=== PATIENT | female | born 1980 | race Caucasian/White ===

== ENCOUNTER 2017-06-23 11:12 | Emergency (ER) | payer BC ==
[2017-06-23] MEDS: IBUPROFEN 800 MG TAB PO (13:34)
== END 2017-06-23 14:17 | disposition home or self-care (01) ==
LOC: E/R 11:12
DX: R07.2 Precordial pain (principal); F17.210 Nicotine dependence, cigarettes, uncomplicated
CPT/HCPCS: 71045; 93005; 99284-25

== ENCOUNTER 2017-09-03 13:50 | Emergency (ER) | payer BC ==
[2017-09-03] MEDS: KETOROLAC 30 MG INJ IM (17:17)
[2017-09-03 17:38] LABS: ADD UMIC YES; UR ASCORBIC ACID NEGATIVE (NEGATIVE); UR BILIRUBIN (Dip) NEGATIVE (NEGATIVE); UR BLOOD (Dip) 3+ mg/dL (NEGATIVE); UR CLARITY CLEAR (CLEAR); UR COLOR AMBER (YELLOW); UR GLUCOSE (Dip) NEGATIVE (NEGATIVE); UR KETONES (Dip) NEGATIVE (NEGATIVE); UR LEUKOCYTE ESTERASE (Dip) NEGATIVE Leu/ul (NEGATIVE); UR NITRITE (Dip) POSITIVE (NEGATIVE); UR RBC 101 /HPF (0-5); UR SPECIFIC GRAVITY (Dip) 1.015 (1.003-1.030); UR TOTAL PROTEIN (Dip) 1+ mg/dl (NEGATIVE); UR UROBILINOGEN (Dip) 2+ mg/dL (NEGATIVE); UR WBC 7 /HPF (0-5)
== END 2017-09-03 18:19 | disposition home or self-care (01) ==
LOC: FTE 13:50
DX: N12 Tubulo-interstitial nephritis, not specified as acute or chronic (principal)
CPT/HCPCS: 74176; 81001; 81025; 96372; 99285-25

== ENCOUNTER 2018-02-26 13:50 | Emergency (ER) | payer BC | END 2018-02-26 16:51 | disposition home or self-care (01) | LOC: FTE 13:50 | DX: M79.602 Pain in left arm (principal); M79.601 Pain in right arm | CPT/HCPCS: 99283 ==

== ENCOUNTER 2018-08-14 20:56 | Emergency (ER) | payer BC ==
[2018-08-15 03:14] LABS: ADD MAN DIFF? NO
[2018-08-15 03:17] LABS: BASOPHILS % 0.3 % (0.0-2.0); EOSINOPHILS % 0.6 % (0.0-7.0); HEMATOCRIT 38.5 % (37.0-47.0); HEMOGLOBIN 12.4 g/dl (12.0-16.0); LYMPHOCYTES # 2.4 10^3/ul (0.8-2.9); LYMPHOCYTES % 32.9 % (15.0-51.0); MEAN CORPUSCULAR HGB CONC 32.2 g/dl (32.0-37.0); MEAN PLATELET VOLUME 9.7 fl (7.4-10.4); MONOCYTE # 0.6 10^3/ul (0.3-0.9); NEUTROPHIL # 4.2 10^3/ul (1.6-7.5); NEUTROPHILS % 57.9 % (39.0-77.0); PLATELET COUNT 208 10^3/UL (140-415); RED BLOOD COUNT 4.28 10^6/ul (4.20-5.40); RED CELL DISTRIBUTION WIDTH 13.4 % (11.5-14.5)
[2018-08-15 03:17] LABS: WHITE BLOOD COUNT 7.2 10^3/ul (4.8-10.8)
[2018-08-15 03:24] LABS: ADD UMIC NO; UR ASCORBIC ACID NEGATIVE (NEGATIVE); UR BILIRUBIN (Dip) NEGATIVE (NEGATIVE); UR BLOOD (Dip) NEGATIVE (NEGATIVE); UR CLARITY CLEAR (CLEAR); UR COLOR YELLOW (YELLOW); UR GLUCOSE (Dip) NEGATIVE (NEGATIVE); UR KETONES (Dip) 1+ mg/dL (NEGATIVE); UR LEUKOCYTE ESTERASE (Dip) NEGATIVE Leu/ul (NEGATIVE); UR NITRITE (Dip) NEGATIVE (NEGATIVE); UR SPECIFIC GRAVITY (Dip) 1.014 (1.003-1.030); UR TOTAL PROTEIN (Dip) NEGATIVE (NEGATIVE); UR UROBILINOGEN (Dip) NEGATIVE (NEGATIVE)
[2018-08-15] MEDS: ONDANSETRON 4 MG INJ IV (03:27)
[2018-08-15] MEDS: SOD CHLORIDE 0.9% 1,000 ML IV (03:28)
[2018-08-15] MEDS: LIDOCAINE/MYLANTA 40 ML BTL PO (03:28)
[2018-08-15] MEDS: BELLADONNA/PHENOBARBITAL TAB PO (03:33)
[2018-08-15] MEDS: morphine 2 MG INJ IV (03:33)
[2018-08-15 03:37] LABS: ALANINE AMINOTRANSFERASE 17 IU/L (13-69); ALBUMIN 4.4 g/dl (3.3-4.9); ALBUMIN/GLOBULIN RATIO 1.22; ALKALINE PHOSPHATASE 79 IU/L (42-121); ANION GAP 9 (5-13); ASPARTATE AMINO TRANSFERASE 23 IU/L (15-46); BILIRUBIN,INDIRECT 0.5 mg/dl (0-1.1); BILIRUBIN,TOTAL 0.5 mg/dl (0.2-1.3); BLOOD UREA NITROGEN 11 mg/dl (7-20); CALCIUM 9.5 mg/dl (8.4-10.2); CARBON DIOXIDE 26 mmol/L (21-31); CHLORIDE 106 mmol/L (97-110); CREATININE 0.59 mg/dl (0.44-1.00); Estimated GFR > 60 mL/min (>60); GLUCOSE 108 mg/dl (70-220); LIPASE 63 U/L (23-300); POTASSIUM 3.5 mmol/L (3.5-5.1); SODIUM 141 mmol/L (135-144)
== END 2018-08-15 04:36 | disposition home or self-care (01) ==
LOC: FTE 20:56
DX: R10.13 Epigastric pain (principal); R11.0 Nausea
CPT/HCPCS: 36415; 76705; 80053; 81003; 83690; 85025; 96374; 96375; 99285-25